=== PATIENT | male | born 1975 | race Caucasian/White ===

== ENCOUNTER 2024-05-06 15:12 | Emergency (ER) | payer BC ==
[~2024-05-06] VITALS: Ht 177.8 cm; Wt 83.9 kg
[2024-05-06 15:22] VITALS: BP 141/89; TEMP 98.1
[2024-05-06 19:06] VITALS: O2SAT 98
== END 2024-05-06 19:06 | disposition home or self-care (01) ==
LOC: ER 15:15
DX: J06.9 Acute upper respiratory infection, unspecified (principal); F17.200 Nicotine dependence, unspecified, uncomplicated; Z88.6 Allergy status to analgesic agent